=== PATIENT | female | born 1955 ===

== ENCOUNTER → 2019-02-25 | Outpatient (CLI) | payer OTHER, MEDICARE ==
--- NOTE | 2019-02-25 13:40 | WOMENS IMAGING REPORT ---
EXAM DESCRIPTION: 3D SCREENING MAMMO BILAT COMPLETED DATE/TIME: 02/25/2019 1:25 pm REASON FOR STUDY: ROUTINE BILATERAL SCREENING;Z12.31 Z12.31 ENCNTR SCREEN MAMMOGRAM FOR MALIGNANT N EOPLASM OF ADDI COMPARISON: None. Patient states no films are available for 20 years EXAM PARAMETERS: Standard craniocaudal and mediolateral oblique views of each breast recorded using digital acquisition and breast tomosynthesis. Read with the assistance of CAD. .[facility] - R2 Aging Room Hand Version 9.2 LIMITATIONS: None. FINDINGS: Findings present which are benign by mammographic criteria. No suspicious masses, calcific ations or architectural distortion. Pertinent benign findings: There is a biopsy clip in the left breast laterally 3 o'clock position adj acent to punctate calcifications. Patient states the left breast biopsy was negative for malignancy many years ago Benign mammographic findings may include one or more of the following: Smooth masses, popcorn/rim/coa rse calcifications, asymmetries, post-procedure changes, and lesions with long-standing stability. IMPRESSION: Assessment: BENIGN MAMMOGRAPHIC FINDINGS. BIRADS 2 BREAST DENSITY: a. The breasts are almost entirely fatty. BIRAD: 2 BENIGN FINDING(S) RECOMMENDATION: ROUTINE SCREENING COMMENT: The patient has been notified of the results by letter per [place] requirements. Additional no tification policies are in place for contacting patient with suspicious or incomplete findings. Quality ID #[id number]: The [employer] recommends an annual screening mammogram for women aged 40 years or over. This facility utilizes a reminder system to ensure that all patients receive reminder letters, and/or direct phone calls for appointments. This includes reminders for routine scr eening mammograms, diagnostic mammograms, or other Breast Imaging Interventions when appropriate. Th is patient will be placed in the appropriate reminder system. TECHNICAL DOCUMENTATION: FINDING NUMBER: (1) ASSESSMENT: (1) JOB ID: [id number] [employer]- All Rights Reserved Reading location - IP/workstation name: [email or web address]
== END ==
LOC: WI 12:44
PROVIDERS: ATTEND Physician Assistant
DX: Z12.31 Encounter for screening mammogram for malignant neoplasm of breast (principal)
CPT/HCPCS: 77063; 77067

== ENCOUNTER 2019-12-14 20:14 | Emergency (ER) | payer MEDICARE, OTHER ==
[2019-12-14] MEDS ORDERED: KETOROLAC TROMETHAMINE INJ/PF 30 MG/1 ML SDV IV ONE (21:03)
--- NOTE | 2019-12-14 21:05 | ER Document Report ---
ED Medical Screen (RME) - General Chief Complaint: Back Pain Stated Complaint: BACK PAIN/SHORTNESS OF BREATH Time Seen by Provider: 12/14/19 20:54 Primary Care Provider: IVA RASMUSSEN PA-C [Primary Care Provider] - Follow up as needed TRAVEL OUTSIDE OF THE [place] IN LAST 30 DAYS: No - HPI Notes: 12/14/19 21:03 Patient is a 64-year-old female who presents complaining of back pain over the past month that is worsening. Patient states that movements and standing too long make the pain worse. The pain does not radiate aside from around her ribs. She is able to eat and drink without difficulty. She is urinating normally and having normal bowel movements. No saddle anesthesia. No fever or recent illness. No history of spinal abscess, diabetes, IV drug abuse. Patient states that she has been using just [id number] meds for symptoms. I have treated and performed a rapid initial assessment of this patient. A comprehensive ED assessment and evaluation of the patient, analysis of test results and completion of medical decision making process will be conducted by additional ED providers. PHYSICAL EXAMINATION: GENERAL: Patient appears to have pain out of proportion. She does appear uncomfortable and is leaning on the counter currently. She is hypersensitive to palpation of her entire back. - Related Data Allergies/Adverse Reactions: Penicillins Allergy (Verified 12/14/19 20:46) Past Medical History - Social History Chew tobacco use (# tins/day): No Frequency of alcohol use: Heavy Drug Abuse: None Past Surgical History: Reports: Hx Bowel Surgery, Hx Orthopedic Surgery - back Physical Exam - Vital signs Vitals: Temp Pulse Resp BP Pulse Ox 98.7 F 92 24 H 144/100 H 99 12/14/19 20:36 12/14/19 20:36 12/14/19 20:36 12/14/19 20:36 12/14/19 20:36 Course - Vital Signs Vital signs: Temp Pulse Resp BP Pulse Ox 98.7 F 92 24 H 144/100 H 99 12/14/19 20:36 12/14/19 20:36 12/14/19 20:36 12/14/19 20:36 12/14/19 20:36 Doctor's Discharge - Discharge Referrals: IVA RASMUSSEN PA-C [Primary Care Provider] - Follow up as needed
--- NOTE | 2019-12-14 21:51 | RADIOLOGY REPORT (SQ) ---
EXAM DESCRIPTION: XR THORACIC SPINE 2 VIEWS COMPLETED DATE/TME: 12/14/2019 21:02 CLINICAL HISTORY: 64 years, Female, back pain COMPARISON: None. NUMBER OF VIEWS: 2 TECHNIQUE: LIMITATIONS: None. FINDINGS: Exaggeration of the normal thoracic kyphosis. Multilevel mild wedging of the midthoracic spine, age indeterminate. These all measure less than 50% diameter reduction. Osteoarthritis. Wedging of a lower thoracic vertebrae superior endplate, likely T12, 50%. This appears old. Surrounding soft tissues demonstrate vascular calcification IMPRESSION: Wedge compression fractures, as described above copyright 2010 [employer]- All Rights Reserved
--- NOTE | 2019-12-14 21:52 | RADIOLOGY REPORT (SQ) ---
EXAM DESCRIPTION: XR LUMBAR SPINE ANTEROPOSTERIOR, LATERAL, AND OBLIQUES COMPLETED DATE/TME: 12/14/2019 21:02 CLINICAL HISTORY: 64 years, Female, back pain COMPARISON: None. NUMBER OF VIEWS: 5 TECHNIQUE: AP lateral both obliques LIMITATIONS: None. FINDINGS: Dextroconvex rotary scoliosis. No anteroposterior subluxation. Multilevel remodeling. No acute compression fracture is seen. Significant age-appropriate osteoarthritis. Remote postsurgical change the soft tissue abdomen. Aneurysm of the infrarenal abdominal aorta estimated at approximately 3.3 cm. This is not a surgical lesion by size criteria. So as margins are clean and regular. IMPRESSION: Scoliosis. Osteoarthritis. No acute fractures appreciated of the lumbar spine copyright 2010 [employer]- All Rights Reserved
[2019-12-14 22:57] LABS: ABSOLUTE EOSINOPHILS # (AUTO) 0.1 10^3/uL (0.0-0.6); ABSOLUTE LYMPHOCYTES (AUTO) 3.7 10^3/uL (0.5-4.7); ABSOLUTE MONOCYTES (AUTO) 0.7 10^3/uL (0.1-1.4); TOTAL CELLS COUNTED % (AUTO) 100 %
[2019-12-14 23:04] LABS: ABSOLUTE NEUT (AUTO) 5.4 10^3/uL (1.7-8.2); BASOPHILS % (AUTO) 0.5 % (0-2); EOSINOPHILS % (AUTO) 0.5 % (0-6); LYMPHOCYTES % (AUTO) 37.8 % (13-45); MEAN CORPUSCULAR HEMOGLOBIN 32.8 pg (27.0-33.4); MEAN CORPUSCULAR VOLUME 94 fl (80-97); PLATELET COUNT 334 10^3/uL (150-450); RED BLOOD COUNT 4.27 10^6/uL (3.72-5.28); RED CELL DISTRIBUTION WIDTH 13.7 % (11.5-14.0); SEGMENTED NEUTROPHILS % (AUTO) 54.2 % (42-78); WHITE BLOOD COUNT 9.9 10^3/uL (4.0-10.5)
[2019-12-14 23:13] LABS: ALBUMIN 4.1 g/dL (3.5-5.0); ALKALINE PHOSPHATASE 106 U/L (38-126); ANION GAP 12 (5-19); ASPARTATE AMINO TRANSFERASE 22 U/L (14-36); BILIRUBIN,DIRECT 0.4 mg/dL (0.0-0.4); BILIRUBIN,TOTAL 0.4 mg/dL (0.2-1.3); BLOOD UREA NITROGEN 13 mg/dL (7-20); CALCIUM 9.4 mg/dL (8.4-10.2); CARBON DIOXIDE 25 mmol/L (22-30); CHLORIDE 89 mmol/L (98-107); GLUCOSE 106 mg/dL (75-110); POTASSIUM 4.6 mmol/L (3.6-5.0); TOTAL PROTEIN 7.7 g/dL (6.3-8.2)
[2019-12-14 23:21] LABS: APPEARANCE,URINE CLEAR; BILIRUBIN,URINE NEGATIVE (NEGATIVE); COLOR,URINE STRAW; GLUCOSE, URINE NEGATIVE (NEGATIVE); KETONES,URINE TRACE mg/dL (NEGATIVE); PROTEIN,URINE NEGATIVE (NEGATIVE); URINE SPECIFIC GRAVITY 1.004; UROBILINOGEN,URINE NEGATIVE mg/dL (<2.0)
[2019-12-14 23:42] LABS: RBC,URINE NONE SEEN /HPF
[2019-12-15] MEDS ORDERED: LIDOCAINE 5% (700 MG) TRANSDERMAL ADH..PATCH TP ONE (02:10)
[2019-12-15] MEDS ORDERED: CYCLOBENZAPRINE HCL 10 MG TABLET PO ONE (02:10)
--- NOTE | 2019-12-15 02:34 | ER Document Report ---
ED General - General Chief Complaint: Back Pain Stated Complaint: BACK PAIN/SHORTNESS OF BREATH Time Seen by Provider: 12/14/19 20:54 Primary Care Provider: IVA JC PA-C [Primary Care Provider] - Follow up as needed Notes: 64-year-old female presents emergency department complaining of a progressively worsening pain in her back for the past month. Patient states that the month ago she picked up an in table and moved from one place to another and since then her entire back has been getting more more painful. Patient states that it hurts all the way from her neck down to her tailbone, states that the muscles on either side of her back hurt as well. Patient states she cannot sleep due to the pain, admits constipation, denies urinary retention or fecal incontinence. States that her feet have been tingling bilaterally since they started swelling 1 month ago. Patient attributes to this to having to stand more often because her back hurts so much when she stays in 1 position. States that changing her position helps, laying flat on her back worsens it. States that it radiates through her entire back and into her ribs, does not radiate down her legs. Patient does state that she occasionally has slight numbness to her rectum intermittently but not to her entire perineum or saddle distribution. Denies any weakness. TRAVEL OUTSIDE OF THE [place] IN LAST 30 DAYS: No - Related Data Allergies/Adverse Reactions: Penicillins Allergy (Verified 12/14/19 20:46) Past Medical History - General Information source: Patient - Social History Smoking Status: Current Every Day Smoker Chew tobacco use (# tins/day): No Frequency of alcohol use: Heavy - Least 3 beers daily Drug Abuse: None Family History: Reviewed & Not Pertinent Patient has suicidal ideation: No Patient has homicidal ideation: No Past Surgical History: Reports: Hx Bowel Surgery, Hx Orthopedic Surgery - back Review of Systems - Review of Systems Constitutional: No symptoms reported Respiratory: No symptoms reported. denies: Hurts to breathe, Short of breath Gastrointestinal: No symptoms reported Musculoskeletal: See HPI, Back pain Neurological/Psychological: See HPI, Tingling -: Yes All other systems reviewed and negative Physical Exam - Vital signs Vitals: Temp Pulse Resp BP Pulse Ox 98.7 F 92 24 H 144/100 H 99 12/14/19 20:36 12/14/19 20:36 12/14/19 20:36 12/14/19 20:36 12/14/19 20:36 Interpretation: Tachypneic - Notes Notes: GENERAL: Alert, standing at the counter, bending forward and leaning over the counter, appears mildly uncomfortable. HEAD: Normocephalic, atraumatic EYES: Pupils equal, round and reactive to light, extraocular movements intact. ENT: Oral mucosa moist, tongue midline. NECK: Full range of motion, supple, trachea midline. LUNGS: Clear to auscultation bilaterally, no wheezes, rales or rhonchi, no respiratory distress. HEART: Regular rate and rhythm, no murmurs, gallops, rubs. ABDOMEN: Soft, nontender, nondistended, bowel sounds present in all 4 quadrants. EXTREMITIES: Moves all 4 extremities spontaneously, no edema, radial and dorsalis pedis pulses 2/4 bilaterally. No cyanosis. NEUROLOGICAL: Alert and oriented x3, normal speech, patellar DTRs 2+ bilaterally. Negative straight leg raising test bilaterally, great toe strength 5 out of 5 bilaterally, complains of decreased sensation to the top of her right foot, states this is chronic since the surgery, normal sensation to the left foot, no saddle anesthesia, able to walk but does have increased kyphosis. BACK: Complains of pain when I palpate anywhere from cervical spine in the midline down to sacrum, no step-offs or deformities, there is an increased kyphosis, also complains of pain and tenderness with palpation diffusely across the paraspinal musculature from cervical spine to lumbar spine. PSYCH: Anxious SKIN: Warm, Dry. Course - Re-evaluation Re-evalutation: 12/15/19 03:07 Lumbar Spine X-Ray 12/14/19 21:02 IMPRESSION: Scoliosis. Osteoarthritis. No acute fractures appreciated of the lumbar spine copyright 2010 [employer]- All Rights Reserved Thoracic Spine X-Ray 12/14/19 21:02 IMPRESSION: Wedge compression fractures, as described above copyright 2010 [employer]- All Rights Reserved No indication for kyphoplasty as her wedge compression fractures are of indeterminate age and less than 50% 12/15/19 03:07 Hyponatremia is consistent with drinking 3 beers a day. CBC unremarkable, urinalysis unremarkable, the wedge compression fractures are less than 50% and therefore not amenable to kyphoplasty. No signs of cauda equina. Patient will be discharged home, treated with Lidoderm patches and Flexeril. Instructed to follow-up with primary care provider Iva jc as an outpatient. - Vital Signs Vital signs: Temp Pulse Resp BP Pulse Ox 98.7 F 92 24 H 144/100 H 99 12/14/19 20:36 12/14/19 20:36 12/14/19 20:36 12/14/19 20:36 12/14/19 20:36 - Laboratory Result Diagrams: 12/14/19 22:30 12/14/19 22:30 Laboratory results interpreted by me: 12/14/19 12/14/19 22:30 22:30 Sodium 125.7 L Chloride 89 L Est GFR (MDRD) Non-Af 59 L Urine Ketones TRACE H Discharge - Discharge Clinical Impression: Back strain Qualifiers: Encounter type: initial encounter Qualified Code(s): S39.012A - Strain of muscle, fascia and tendon of lower back, initial encounter Condition: Stable Disposition: HOME, SELF-CARE Additional Instructions: Low Back Pain Three out of every four people will have an episode of disabling back pain during their lifetime. Most commonly the pain is due to straining of the muscles and ligaments in the low back. Usual treatment includes: (1) Rest on a firm surface. Avoid lying on your stomach. (2) Ice pack the painful area. After a few days, gentle heat may be used intermittently to relax the area, or ice packs can be continued. (3) Medication may be needed -- muscle relaxers and antiinflammatory medicines are commonly used. (4) As the back improves, exercises are prescribed to strengthen the back and abdominal muscles. Your doctor will advise you on the proper care for your back at each stage in your recovery. You may be better in a few days -- or healing may take several weeks. If new symptoms of a "herniated disc" (radiation of pain, numbness, or tingling down the back of the leg or weakness in the leg) occur, you should be re-examined. Further testing may be necessary. Muscle Relaxers Muscle relaxing medications are usually prescribed for acute muscle spasm or injury to the neck and back. They are often combined with antiinflammatory pain medication for increased relief. You may stop the muscle relaxer when the pain and stiffness have improved. Start the medication again if spasms recur. Muscle relaxers may cause drowsiness, especially with the first dose. Do not operate machinery or drive while under the effects of the medication. Most muscle relaxers last up to 24 hours. Do not combine the medication with alcohol. Muscle Strain You have strained a muscle -- torn the fibers within the muscle. This often occurs with strenuous exertion, or during an injury that suddenly stretches the muscle. The seriousness of a strain varies. Some strains heal within days, othe rs cause problems for months. X-rays cannot show a muscle strain. X-rays are taken only if symptoms suggest that a fracture could be present. The usual treatment of a muscle strain is rest and ice packs. Sometimes, a sling, splint, or crutches may be necessary to rest the muscle. The muscle can be used again once pain subsides. Severe strains require a special exercise and stretching program to prevent permanent stiffness and disability. Your doctor will advise you if this will be necessary. Call the doctor immediately if pain or swelling becomes severe, or if numbness or discoloration develop. Please use the lidocaine patches, on for 12 hours and off for 12 hours as needed for pain. Please also use the Flexeril (a muscle relaxer) 10 mg every 8 hours as needed for pain. Prescriptions: Cyclobenzaprine HCl [Flexeril 10 mg Tablet] 10 mg PO TIDP PRN #15 tab PRN Reason: Lidocaine [Lidoderm 5% (700 mg) Transdermal Patch] 1 - 3 patch TP DAILY #30 adh..patch Referrals: IVA JC PA-C [Primary Care Provider] - Follow up as needed
[2019-12-15 02:39] VITALS: BP 148/97
== END 2019-12-15 03:14 | disposition home or self-care (01) ==
LOC: ER 20:14
DX: S39.012A Strain of muscle, fascia and tendon of lower back, initial encounter (principal); R06.02 Shortness of breath; X50.0XXA Overexertion from strenuous movement or load, initial encounter; E87.1 Hypo-osmolality and hyponatremia; K59.00 Constipation, unspecified; F17.200 Nicotine dependence, unspecified, uncomplicated; Z88.0 Allergy status to penicillin
CPT/HCPCS: 99283; 36415; 85025; 80053; 81001; 72110; 72070; A9270 ×2